=== PATIENT | male | born 1960 | race Hispanic/Latino ===

== ENCOUNTER 2019-10-22 08:58 | Outpatient (CLI) | payer MEDICARE ==
--- NOTE | 2019-10-23 06:35 | Pulmonary Function Test ---
SPIROMETRY: FVC is 2.98 liters, which is 70% of the predicted. FEV1 is 2.36, which is 73% of the predicted. FEV1/FVC ratio is 79 and FEF 25-75% is 2.34 liters per second, which is 84% of the predicted. IMPRESSION: Based on this spirometry, this is a normal spirometry, however, based on this spirometry, you cannot rule out restrictive ventilatory impairment. JOB# [id number] [facility]/NTS
== END 2019-10-22 08:59 | disposition home or self-care (01) ==
LOC: PF 08:58
PROVIDERS: ATTEND Surgery
DX: E66.01 Morbid (severe) obesity due to excess calories (principal); E66.2 Morbid (severe) obesity with alveolar hypoventilation
CPT/HCPCS: 94010

== ENCOUNTER 2019-10-23 06:26 | Day surgery (SDC) | payer MEDICARE ==
[2019-10-23] MEDS ORDERED: SODIUM CHLORIDE 0.9% 1000 ML 1,000 ML IV SCH (07:15)
--- NOTE | 2019-10-23 07:44 | Anesthesia Consultation ---
Anesthesia Consult and Med Hx Date of service: 10/23/19 - Airway Anesthetic Teeth Evaluation: Poor (multiple chipped, broken off teeth, mostly upper front) ROM Head & Neck: Adequate Mental/Hyoid Distance: Adequate Mallampati Class: Class III Intubation Access Assessment: Possibly Difficult - Pre-Operative Health Status ASA Pre-Surgery Classification: ASA3 Proposed Anesthetic Plan: MAC - Pulmonary Hx Sleep Apnea: Yes - Cardiovascular System Hx Hypertension: Yes Hx Coronary Artery Disease: Yes (CABG (2002) x 2 bypasses) Hx Heart Attack/AMI: Yes (x3?) Hx Percutaneous Transluminal Coronary Angioplasty (PTCA): Yes (2002, 2006,2014) - Central Nervous System Hx Back Pain: Yes (rheumatoid arthritis) - Other Systems Hx Obesity: Yes (Morbid obesity BMI 43.1)
[2019-10-23] MEDS ORDERED: LIDOCAINE MPF (2%) 20 MG/1 ML VIAL 5 ML ONE (09:00)
--- NOTE | 2019-10-23 09:13 | Operative Report ---
Operative Report Operative Report: DATE 10/23/19 SURGERY: Upper endoscopy with antral biopsy SURGEON: Shyla Lopez M.D. JIG OPERATOR: n/a PRE OP DX: morbid obesity, GERD POST OP DX: same as pre-op TYPE OF ANESTHESIA: MAC. ESTIMATED BLOOD LOSS: None. COMPLICATIONS: None. SPECIMENS REMOVED: antral mucosal biopsy FINDINGS: 1. Small hiatal hernia. 2. Otherwise, normal esophagus, stomach and first portion of duodenum. INDICATIONS:INDICATION FOR PROCEDURE: Patient is a 59-year-old male with a long history of morbid obesity. He is planned to have a weight loss procedure and is here for preoperative planning EGD. PROCEDURE DETAILS: After consent was reviewed, patient was taken back to the operating room where patient was placed in the left lateral decubitus position and a bite block was placed in the mouth. After a time-out was called, MAC anesthesia was initiated. I then passed the endoscope into his oropharynx, into his esophagus, visualized the entire esophagus, which was all within normal limits. The Z-line was noted to be about 38cm from the incisors. I then visualized the stomach and the first portion of the duodenum and there were no abnormalities I could clearly visualize. I then retroflexed the scope in the stomach and visualized the hiatus and I could see a small hiatal hernia. A cold biopsy was taken of the antral mucosa to evaluate for h.pylori for comprehensive pre-op for bariatric surgery. I then desufflated the stomach and removed the endoscope. Patient tolerated procedure well and was transferred to recovery room in good and stable condition.
--- NOTE | 2019-10-23 09:15 | Discharge Summary ---
Providers - Providers Date of Admission: 10/23/19 Date of discharge: 10/23/19 Attending physician: MIRELLA THOMAS MD Primary care physician: YONI MORROW Hospitalization Reason for admission: egd Condition: Good Procedures: egd Hospital course: pt had an uneventful egd as part of work up prior to bariatric surgery Disposition: DC-01 TO HOME OR SELFCARE Core Measure Documentation - Palliative Care Palliative Care/ Comfort Measures: Not Applicable - Core Measures Any of the following diagnoses?: none Exam - Physical Exam Narrative exam: unchanged from pre-op - Constitutional Vitals: Temp Pulse Resp BP Pulse Ox 98.6 F 67 14 150/85 95 10/23/19 07:29 10/23/19 07:29 10/23/19 07:29 10/23/19 07:29 10/23/19 07:29 Plan Activity: no restrictions Weight Bearing Status: Full Weight Bearing Diet: low carbohydrate Follow up with: YONI MORROW MD [Primary Care Provider] - 7 Days
[2019-10-23] MEDS ORDERED: PROPOFOL 200 MG/20 ML VIAL IV ONE (09:29)
[2019-10-23] MEDS ORDERED: WATER FOR IRRIG STERILE 250 ML BOTTLE IR ONE (10:06)
[2019-10-23 10:21] VITALS: BP 137/86
--- NOTE | 2019-10-23 13:47 | Post Anesthesia Evaluation ---
- Post Anesthesia Evaluation Patient Participated: Yes Airway Patent: Yes Stable Respiratory Function: Yes Nausea/Vomiting: No Temp > 96.8F: Yes Pain Manageable: Yes Adequeate Hydration: Yes Anesthesia Complications: No Block Receding Appropriately: Not Applicable Patient on Ventilator: No
== END 2019-10-23 06:27 | disposition home or self-care (01) ==
LOC: GIO 06:26
PROVIDERS: ATTEND Surgery
DX: K21.9 Gastro-esophageal reflux disease without esophagitis (principal); E66.01 Morbid (severe) obesity due to excess calories; K44.9 Diaphragmatic hernia without obstruction or gangrene; K31.89 Other diseases of stomach and duodenum; I25.10 Atherosclerotic heart disease of native coronary artery without angina pectoris; I10 Essential (primary) hypertension; G47.30 Sleep apnea, unspecified; M06.9 Rheumatoid arthritis, unspecified; Z88.8 Allergy status to other drugs, medicaments and biological substances; Z95.1 Presence of aortocoronary bypass graft; Z68.41 Body mass index [BMI] 40.0-44.9, adult; Z98.890 Other specified postprocedural states
CPT/HCPCS: 43239; 88305; 88342; J2704; J7030